=== PATIENT | male | born 1985 | race Caucasian/White ===

== ENCOUNTER 2018-11-04 04:05 | Emergency (ER) | payer SELFPAY ==
[~2018-11-04] VITALS: Ht 182.9 cm; Wt 100.0 kg
[2018-11-04 06:33] VITALS: BP 144/89
== END 2018-11-04 06:24 | disposition home or self-care (01) ==
LOC: ED 06:06
DX: T40.1X1A Poisoning by heroin, accidental (unintentional), initial encounter (principal); F17.200 Nicotine dependence, unspecified, uncomplicated; Y92.89 Other specified places as the place of occurrence of the external cause
CPT/HCPCS: 93005; 99283